=== PATIENT | female | born 1940 | race Caucasian/White ===

== ENCOUNTER 2022-09-09 06:38 | Day surgery (SDC) | payer OTHER ==
[2022-09-05 15:11] LABS: BASOPHILS % (AUTO) 0.5 % (0.0-5.0); EOSINOPHILS % (AUTO) 1.8 % (0.0-8.0); HEMATOCRIT 41.8 % (36-48); LYMPHOCYTES % (AUTO) 22.1 % (21.0-51.0); MEAN CORPUSCULAR HEMOGLOBIN 31.8 pg (27.0-33.0); MEAN CORPUSCULAR HGB CONC 31.1 g/dL (32.0-36.0); MEAN CORPUSCULAR VOLUME 102.2 fL (79-99); MONOCYTES % (AUTO) 9.2 % (3.0-13.0); NEUTROPHILS % (AUTO) 65.9 % (40.0-77.0); PLATELET COUNT (AUTO) 203 K/uL (130-400); RED BLOOD CELL COUNT(AUTO) 4.09 MIL/uL (4.00-5.50); RED CELL DISTRIBUTION WIDTH 12.7 % (11.0-15.5); WHITE BLOOD COUNT (AUTO) 6.6 K/uL (4.8-10.8)
[2022-09-05 15:21] LABS: INR 0.99 (0.85-1.15); POTASSIUM 3.9 mmol/L (3.5-5.1); PROTHROMBIN TIME 10.8 SEC (9.6-11.6)
[2022-09-05 15:23] LABS: PARTIAL THROMBOPLASTIN TIME 27.6 SEC (26.3-35.5)
[2022-09-05 15:33] LABS: B-TYPE NATRIURETIC PEPTIDE 237 pg/mL (0-100)
[2022-09-06 10:26] VITALS: BP 155/78
[~2022-09-09] VITALS: Ht 160 cm; Wt 61.4 kg
[2022-09-09] VITALS (11 sets, daily range): BP systolic 101–137; BP diastolic 48–65
[~2022-09-09 06:38] MED LIST: 0.9% NACL 500ML IV.SOLN 500 ML IV SCH; ASPI-1443 PO; CELE100 PO; CLOP75TA32 PO; HYDR25TA PO; ISOS30TA92 PO; METO-409 PO
[2022-09-09 07:31] LABS: APPEARANCE,URINE CLEAR (CLEAR); BILIRUBIN,URINE NEGATIVE (NEGATIVE); COLOR,URINE LIGHT-YELLOW (YELLOW); GLUCOSE, URINE (UA) NEGATIVE (NEGATIVE); KETONES,URINE NEGATIVE (NEGATIVE); LEUKOCYTE ESTERASE ,URINE NEGATIVE Leu/uL (NEGATIVE); NITRATE,URINE NEGATIVE (NEGATIVE); OCCULT BLOOD,URINE NEGATIVE (NEGATIVE); PROTEIN,URINE NEGATIVE (NEGATIVE); UROBILINOGEN,URINE 0.2 mg/dL (0.2-1.0)
[2022-09-09] MEDS ORDERED: LEVO100C4 PO (08:49)
[2022-09-09] MEDS ORDERED: SERT20OR PO (08:49)
[2022-09-09] MEDS ORDERED: MAGN300C PO (08:49)
[2022-09-09] MEDS ORDERED: LIDOCAINE HCL 400MG/20ML VIAL ONE (09:12)
[2022-09-09] MEDS ORDERED: NITROGLYCERIN 50MG VIAL ONE (09:12)
[2022-09-09] MEDS ORDERED: HEPARIN 10,000 UNIT/10ML (1,000 UNIT/ML) VIAL ONE (09:12)
[2022-09-09] MEDS ORDERED: MEPERIDINE-PF 25 MG/ML SYG ONE ×2 (09:12→10:13)
[2022-09-09] MEDS ORDERED: MIDAZOLAM HCL 1 MG/ML 2ML VIAL ONE ×2 (09:12→10:14)
[2022-09-09] MEDS ORDERED: IODIXANOL 320 MG/ML 100 ML VIAL ONE (09:13)
[2022-09-09] MEDS ORDERED: SODIUM BICARB 50MEQ 50ML VIAL 50 ML ONE (09:13)
[2022-09-09] MEDS ORDERED: IOHEXOL-350 50ML VIAL IV ONE (09:14)
[2022-09-09] MEDS ORDERED: 0.9%NACL 1000ML 1,000 ML IV SCH (12:30)
[2022-09-09] MEDS ORDERED: ONDANSETRON 4MG INJ ONE (16:24)
== END 2022-09-09 18:15 | disposition home or self-care (01) ==
LOC: DAH 06:38
PROVIDERS: ATTEND Internal Medicine Cardiovascular Disease
DX: I25.119 Atherosclerotic heart disease of native coronary artery with unspecified angina pectoris (principal); T82.855A Stenosis of coronary artery stent, initial encounter; I25.82 Chronic total occlusion of coronary artery; E78.5 Hyperlipidemia, unspecified; Z79.82 Long term (current) use of aspirin; Z79.899 Other long term (current) drug therapy; Z79.01 Long term (current) use of anticoagulants; Z95.5 Presence of coronary angioplasty implant and graft; Y83.8 Other surgical procedures as the cause of abnormal reaction of the patient, or of later complication, without mention of misadventure at the time of the procedure
CPT/HCPCS: 80048; 83880; 85025; 85610; 85730; 36415; 93005; 92978; 85347 ×3; 81003; 71045; 93458; C9600 ×2; C1769 ×3; C1887; C1894; C1760; C1753; C1874 ×5; C1725 ×3; J7040; J3490 ×3; J1644 ×3; J2250 ×2; J2405; J2175 ×2; Q9967 ×2; A4215; A4222; A4221; A4663; A4216; A4606; C9601 ×2; Q9965; A4223 ×3; 96360; 96361; 99156; 99157